=== PATIENT | male | born 1965 | race Caucasian/White ===

== ENCOUNTER 2017-09-22 09:30 | Emergency (ER) | payer OTHER ==
[2017-09-22 09:39] VITALS: BP 154/84; PULSE 90; TEMP 97.8; BMI 38.0
[2017-09-22] MEDS ORDERED: KETOROLAC TROMETHAMINE 60 MG/2 ML VIAL IM ONE (10:03)
[2017-09-22] MEDS ORDERED: KETOROLAC TROMETHAMINE 60 MG/2 ML VIAL ONE (10:05)
--- NOTE | 2017-09-22 11:00 | PDOC ---
History of Present Illness - General Chief Complaint: Back Pain Stated Complaint: BACK PAIN Time Seen by Provider: 09/22/17 09:50 History Source: Patient Exam Limitations: No Limitations - History of Present Illness Initial Comments: 09/22/17 10:46 CHIEF COMPLAINT: [Lower back pain] HISTORY OF PRESENT ILLNESS: 52-year-old female, history of back herniation after an accident presents with a generalized lower back pain, pain started after turning to pick something up, denies any other trauma, did not pick the object up pain started only when she was turning. Nonradiating pain, no neurosensory deficits, no bowel or bladder difficulty incontinence or urinary retention, no saddle anesthesia, no footdrop. No history of IVDU or history of cancer. ] REVIEW OF SYSTEMS: GENERAL: Afebrile, denies any weakness RESPIRATORY: No cough, wheezing, or hemoptysis. CARDIAC: No chest pain or shortness of breath MUSCULOSKELETAL: Pain to generalized lower back. No point tenderness. Pain worse on [right than left. ] SKIN : No erythema, no bruising, no deformity. GI/: Denies any abdominal pain, no urinary difficulty, incontinence or urinary retention. RECTAL: Denies any difficulty this A.m. NEUROLOGICAL: Denies any numbness or tingling. No neurosensory deficits. PHYSICAL EXAM: GENERAL: The patient is awake, alert, and fully oriented, in no acute distress. RESPIRATORY: Lungs clear bilaterally, no rhonchi wheezes or crackles CARDIAC: S1-S2 audible, no murmur rub or gallop MUSCULOSKELETAL: Pain to generalized lower back, nonradiating, no tingling or sensory deficit. Less than 2 second cap refill, +4 popliteal and pedal pulses. GI/: Abdomen soft, nontender, nondistended. No rebound tenderness. No masses palpable. MUSCULOSKELETAL: No spinal point tenderness. Normal reflexive and no deficits to sensation or strength. RECTAL: [Deferred patient with no neurological findings] SKIN: Warm, Dry, normal turgor, no erythema, no edema no bruising. Past History - Past Medical History Allergies/Adverse Reactions: Allergies Allergy/AdvReac Type Severity Reaction Status Date / Time No Known Allergies Allergy Verified 09/22/17 09:35 Home Medications: Ambulatory Orders Diazepam [Valium] 2 mg PO TID #15 tablet MDD 3 09/22/17 Naproxen [Naprosyn] 500 mg PO BID #20 tablet 09/22/17 COPD: No Other medical history: DENIES. - Suicide/Smoking/Psychosocial Hx Smoking History: Current every day smoker Have you smoked in the past 12 months: Yes Number of Cigarettes Smoked Daily: 10 Information on smoking cessation initiated: No *Physical Exam - Vital Signs Last Vital Signs Temp Pulse Resp BP Pulse Ox 97.8 F 90 15 154/84 100 09/22/17 09:35 09/22/17 09:35 09/22/17 09:35 09/22/17 09:35 09/22/17 09:35 ED Treatment Course - Medications Given in the ED: ED Medications Discontinued Medications Generic Name Dose Route Start Last Admin Trade Name Freq PRN Reason Stop Dose Admin Ketorolac Tromethamine 60 mg 09/22/17 10:03 09/22/17 10:13 Toradol Injection - IM 09/22/17 10:04 60 mg ONCE ONE Administration Medical Decision Making - Medical Decision Making 09/22/17 10:47 A/P: Patient with generalized lower back pain, history of herniated disc. Denies any neurosensory deficits, no radiating pain. Toradol 60 mg IM x 1 given with good result. Will DC on Naprosyn, and valium. follow up with PMD. No heavy lifting, No heavy lifting. I discussed the physical exam findings, ancillary test results and final diagnoses with the patient. I answered all of the patient's questions. The patient was satisfied with the care received and felt comfortable with the discharge plan and treatment plan. The patient will call to arrange follow-up and will return to the Emergency Department with any new, persistent or worsening symptoms. *DC/Admit/Observation/Transfer Diagnosis at time of Disposition: Low back pain Qualifiers: Chronicity: acute Back pain laterality: bilateral Sciatica presence: without sciatica Qualified Code(s): M54.5 - Low back pain - Discharge Dispostion Disposition: HOME Condition at time of disposition: Stable Admit: No - Prescriptions Prescriptions: Diazepam [Valium] 2 mg PO TID #15 tablet MDD 3 Naproxen [Naprosyn] 500 mg PO BID #20 tablet - Referrals Referrals: Tyler Castaneda MD [Primary Care Provider] - Brain Howell MD [Staff Physician] - - Patient Instructions Printed Discharge Instructions: DI for Low Back Pain Additional Instructions: 1. Please return to the emergency department with any numbness, tingling, weakness, numbness or tingling to groin or legs, or loss of bowel or bladder function. 2. Use pain medication as ordered. 3. Please is to followup in the office of Dr. howell for evaluation within a week if no improvement. 4. Ice or heat 5. Refrain from lifting anything above 10 pounds, until pain resolved. - Post Discharge Activity Forms/Work/School Notes: Back to Work
== END 2017-09-22 11:17 | disposition home or self-care (01) ==
LOC: JERFT 09:30
PROC: 3E0233Z Introduction of Anti-inflammatory into Muscle, Percutaneous Approach (ICD-10-PCS; principal; 2017-09-22)
DX: M54.5 Low back pain (principal); X50.1XXA Overexertion from prolonged static or awkward postures, initial encounter; Y93.89 Activity, other specified; Y92.89 Other specified places as the place of occurrence of the external cause; Y99.8 Other external cause status
CPT/HCPCS: 99281-25

== ENCOUNTER 2018-09-09 17:42 | Emergency (ER) | payer OTHER ==
[2018-09-09 17:59] VITALS: BP 154/107; PULSE 94; TEMP 99.5; BMI 39.5
--- NOTE | 2018-09-09 18:51 | PDOC ---
History of Present Illness - General Chief Complaint: Cold Symptoms Stated Complaint: COLD SYMPTOMS Time Seen by Provider: 09/09/18 17:57 History Source: Patient Exam Limitations: Clinical Condition - History of Present Illness Initial Comments: 09/09/18 18:47 Patient with no significant past medical history present with one day history of nasal congestion, body aches, cough, tactile fever and chills. Patient denies vomiting, abdominal pain or sore throat. Patient reported taking Tylenol for fever. Denies any other symptoms. Patient did not take flu shot this year. Timing/Duration: 24 hours Past History - Past Medical History Allergies/Adverse Reactions: Allergies Allergy/AdvReac Type Severity Reaction Status Date / Time No Known Allergies Allergy Verified 09/09/18 17:59 Home Medications: Ambulatory Orders Benzonatate [Tessalon Pearls -] 100 mg PO Q8H PRN #21 capsule 09/09/18 Methylprednisolone [Medrol Dose Jose] 4 mg PO ASDIR #21 tablet 09/09/18 Oseltamivir Phosphate [Tamiflu] 75 mg PO BID 5 Days #10 capsule 09/09/18 COPD: No - Suicide/Smoking/Psychosocial Hx Smoking History: Never smoked Have you smoked in the past 12 months: Yes Number of Cigarettes Smoked Daily: 10 Review of Systems - Review of Systems Able to Perform ROS?: Yes Is the patient limited Estonian proficient: No Constitutional: Yes: Chills, Fever (tactile), Malaise HEENTM: Yes: Symptoms Reported, See HPI, Nose Congestion. No: Eye Pain, Blurred Vision, Tearing, Recent change in vision, Double Vision, Cataracts, Ear Pain, Ocular Prothesis, Ear Discharge, Nose Pain, Tinnitus, Nose Bleeding, Hearing Loss, Throat Pain, Throat Swelling, Mouth Pain, Dental Problems, Difficulty Swallowing, Mouth Swelling, Other Respiratory: Yes: Symptoms reported, See HPI, Cough. No: Orthopnea, Shortness of Breath, SOB with Exertion, SOB at Rest, Stridor, Wheezing, Productive cough, Hemoptysis, Other Cardiac (ROS): No: Symptoms Reported, See HPI, Chest Pain, Edema, Irregular Heart Rate, Lightheadedness, Palpitations, Syncope, Chest Tightness, Other ABD/GI: Yes: Nausea. No: Symptoms Reported, See HPI, Abdominal Distended, Abd. Pain w/ defecation, Blood Streaked Bowels, Constipated, Diarrhea, Difficulty Swallowing, Poor Appetite, Poor Fluid Intake, Rectal Bleeding, Vomiting, Indigestion, Abdominal cramping, Tarry Stools, Other : No: Discharge, Frequency, Urgency Neurological: No: Headache, Dizziness All Other Systems: Reviewed and Negative *Physical Exam - Vital Signs Last Vital Signs Temp Pulse Resp BP Pulse Ox 99.5 F 94 H 18 154/107 H 98 09/09/18 17:57 09/09/18 17:57 09/09/18 17:57 09/09/18 17:57 09/09/18 17:57 - Physical Exam Comments: 09/09/18 18:49 GENERAL: Well developed, well nourished. Awake and alert. No acute distress. HEENT: Normocephalic, atraumatic. PERRLA, EOMI. No conjunctival pallor. Sclera are non-icteric. Moist mucous membranes. Oropharynx is clear. NECK: Supple. Full ROM. CARDIOVASCULAR: Regular rate and rhythm. No murmurs, rubs, or gallops. Distal pulses are 2+ and symmetric. PULMONARY: No evidence of respiratory distress. Lungs clear to auscultation bilaterally. No wheezing, rales or rhonchi. ABDOMINAL: Soft. Non-tender. Non-distended. No rebound or guarding. No organomegaly. Normoactive bowel sounds. MUSCULOSKELETAL Normal range of motion at all joints. SKIN: Warm and dry. No cyanosis. Normal capillary refill. No rashes. No jaundice. NEUROLOGICAL: Alert, awake, appropriate. Gait is normal without ataxia. PSYCHIATRIC: Cooperative. Good eye contact. Appropriate mood General Appearance: Yes: Nourished, Appropriately Dressed. No: Apparent Distress Moderate Sedation - Procedure Monitoring Vital Signs: Procedure Monitoring Vital Signs Temperature 99.5 F 09/09/18 17:57 Pulse Rate 94 H 09/09/18 17:57 Respiratory Rate 18 09/09/18 17:57 Blood Pressure 154/107 H 09/09/18 17:57 O2 Sat by Pulse Oximetry (%) 98 09/09/18 17:57 Medical Decision Making - Medical Decision Making 09/09/18 18:49 Patient with no significant past medical history present with complaint of 24- hour history of URI symptoms with tactile fever, chills and body aches. Clinical exam unremarkable lungs clear to auscultation bilateral and normal cardio exam. Patient with elevated blood pressures with no history of hypertension. Elevated blood pressure likely caused by sickness. Symptoms likely viral syndrome versus viral URI versus influenza. Rapid flu tests ordered to rule out influenza. 09/09/18 19:28 Rapid flu positive for Influenza A. Patient stable for outpatient treatment for influenza and viral URI *DC/Admit/Observation/Transfer Diagnosis at time of Disposition: Viral syndrome, Influenza A URI (upper respiratory infection) Qualifiers: URI type: unspecified viral URI Qualified Code(s): J06.9 - Acute upper respiratory infection, unspecified - Discharge Dispostion Disposition: HOME Condition at time of disposition: Stable Decision to Admit order: No - Prescriptions Prescriptions: Benzonatate [Tessalon Pearls -] 100 mg PO Q8H PRN #21 capsule PRN Reason: Cough Methylprednisolone [Medrol Dose Jose] 4 mg PO ASDIR #21 tablet Oseltamivir Phosphate [Tamiflu] 75 mg PO BID 5 Days #10 capsule - Referrals Referrals: Tyler Castaneda MD [Primary Care Provider] - - Patient Instructions Printed Discharge Instructions: DI for Viral Upper Respiratory Infection -- Adult Additional Instructions: Your flu test was positive for Influenza A. Take medications as prescribed . Increase fluid intake. Take Tylenol as needed for fever. Follow-up with PCP - Post Discharge Activity
== END 2018-09-09 19:40 | disposition home or self-care (01) ==
LOC: JERFT 17:42 → EDSEX 17:42 → JERFT 19:40
DX: J06.9 Acute upper respiratory infection, unspecified (principal); J09.X2 Influenza due to identified novel influenza A virus with other respiratory manifestations; B97.89 Other viral agents as the cause of diseases classified elsewhere
CPT/HCPCS: 87804; 99281-25

== ENCOUNTER 2019-08-08 16:57 | Emergency (ER) | payer OTHER ==
[2019-08-08 17:14] VITALS: BP 173/75; PULSE 85; TEMP 98.1; BMI 34.9
--- NOTE | 2019-08-08 17:36 | PDOC ---
History of Present Illness - General Chief Complaint: Respiratory Stated Complaint: FLU SYX Time Seen by Provider: 08/08/19 17:14 History Source: Patient Exam Limitations: No Limitations - History of Present Illness Initial Comments: 08/08/19 17:34 HISTORY OF PRESENT ILLNESS: 54-year-old woman who denies medical history presents emergency department for evaluation of cough, sore throat, body aches and subjective fevers for the past 7 days. Patient noted fevers started approximately 3 days ago but has not checked her temperature. 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 Patient is a pack-a-day smoker. No recent travel or sick contacts. PAST MEDICAL HISTORY: Denies past medical history SURGICAL HISTORY: Denies ALLERGIES: No known drug allergies REVIEW OF SYSTEMS General/Constitutional: See HPI HEENT: Denies change in vision. Denies ear pain or discharge. Denies sore throat. Cardiovascular: Denies chest pain or shortness of breath. Respiratory: See HPI Gastrointestinal: Denies nausea, vomiting, diarrhea or constipation. Denies rectal bleeding. Genitourinary: Denies dysuria, frequency, or change in urination. Musculoskeletal: Denies joint or muscle swelling or pain. Denies neck or back pain. Skin and breasts: Denies rash or easy bruising. Neurologic: Denies headache, vertigo, loss of consciousness, or loss of sensation. Psychiatric: Denies depression or anxiety. Endocrine: Denies increased thirst. Denies abnormal weight change. Hematologic/Lymphatic: Denies anemia, easy bleeding, or history of blood clots. Allergic/Immunologic: Denies hives or skin allergy. Denies latex allergy. PHYSICAL EXAM General Appearance: Well-appearing, appropriately dressed. No apparent distress , no intoxication. HEENT: EOMI, PERRLA, normal ENT inspection, normal voice, TMs normal, pharynx normal. No conjunctival pallor. No photophobia, scleral icterus. Neck: Supple. Trachea midline. No tenderness, rigidity, carotid bruit, stridor , lymphadenopathy, or thyromegaly. Respiratory/Chest: Lungs CTAB. No shortness of breath, chest tenderness, respiratory distress, accessory muscle use. Right basilar wheezes present. No crackles or adventitious breath sounds present. Cardiovascular: RRR. S1, S2. No JVD, murmur, bradycardia, tachycardia. Vascular Pulses: Dorsalis-Pedis (R): 2+, Dorsalis-Pedis (L): 2+ Neurologic: line operator II-XII intact. Fully oriented, alert. Appropriate mood/affect. Motor strength 5/5. No appreciable EOM palsy, facial droop or sensory deficit. Past History - Past Medical History Allergies/Adverse Reactions: Allergies Allergy/AdvReac Type Severity Reaction Status Date / Time No Known Allergies Allergy Verified 08/08/19 17:09 Home Medications: Ambulatory Orders Azithromycin [Zithromax 250mg Tablets -] 250 mg PO UTDICT #6 tab 08/08/19 COPD: No - Psycho Social/Smoking Cessation Hx Smoking History: Current some day smoker Have you smoked in the past 12 months: Yes Number of Cigarettes Smoked Daily: 10 Information on smoking cessation initiated: No *Physical Exam - Vital Signs Last Vital Signs Temp Pulse Resp BP Pulse Ox 98.1 F 85 16 173/75 H 95 08/08/19 17:11 08/08/19 17:11 08/08/19 17:11 08/08/19 17:11 08/08/19 17:11 Medical Decision Making - Medical Decision Making 08/08/19 17:36 A/P: 54-year-old woman with cough for 1 week Most likely bronchitis as patient is a smoker and has a moist cough. Patient has had a symptoms for approximately 1 week and I will defer influenza testing as patient is outside the window for treatment. Viviana's Reassess 08/08/19 18:11 Repeat lung exam reveals clear lungs. We will discharge patient home with prescription for Z-Jose and instruct patient to follow-up with her primary doctor for reevaluation. I discussed the physical exam findings, ancillary test results and final diagnoses with the patient. I answered all of the patient's questions. The patient was satisfied with the care received and felt comfortable with the discharge plan and treatment plan. The patient will call their primary care physician within 24 hours to arrange follow-up and will return to the Emergency Department with any new, persistent or worsening symptoms. Discharge - Discharge Information Problems reviewed: Yes Clinical Impression/Diagnosis: Bronchitis Condition: Stable Disposition: HOME - Admission No - Additional Discharge Information Prescriptions: Azithromycin [Zithromax 250mg Tablets -] 250 mg PO UTDICT #6 tab - Follow up/Referral - Patient Discharge Instructions Additional Instructions: Take azithromycin as prescribed. Stop smoking. Your emergency department visit is incomplete until you follow-up with your primary doctor. Return to the emergency department for any new or worsening symptoms. Thank you very much for choosing us to provide your emergent healthcare needs. - Post Discharge Activity
[2019-08-08] MEDS ORDERED: ALBUTEROL SO4 2.5/IPRATROPIUM 0.5 INH SOL 3 ML VIAL.NEB. NEB SCH (17:45)
== END 2019-08-08 18:18 | disposition home or self-care (01) ==
LOC: JERFT 16:57
PROC: 3E0F7GC Introduction of Other Therapeutic Substance into Respiratory Tract, Via Natural or Artificial Opening (ICD-10-PCS; principal; 2019-08-08)
DX: J40 Bronchitis, not specified as acute or chronic (principal); F17.210 Nicotine dependence, cigarettes, uncomplicated
CPT/HCPCS: 99281-25

== ENCOUNTER 2024-03-01 08:49 | Inpatient (IN) | payer OTHER ==
[2024-03-01] MEDS ORDERED: ADENOSINE 6 MG/2 ML VIAL IVPUSH ONE (08:58)
[2024-03-01] MEDS: SODIUM CHLORIDE 0.9% 1000 ML INFUS.BAG IV ONE (09:19)
[2024-03-01 09:24] LABS: BASO % 0.6 % (0-2.0); EOS % 0.7 % (0-4.5); HEMATOCRIT 45.7 % (32.4-45.2); HEMOGLOBIN 15.2 GM/dL (10.7-15.3); LYMPH % 22.2 % (8-40); MCH 28.2 pg (25.7-33.7); MCHC 33.3 g/dl (32.0-36.0); MEAN CELL VOLUME 84.6 fl (80-96); MEAN PLT VOLUME 9.1 fl (7.5-11.1); NEUT % 71.5 % (42.8-82.8); PLATELET COUNT 188 10^3/uL (134-434); RDW 14.4 % (11.6-15.6); WHITE BLOOD COUNT 8.8 K/mm3 (4.0-10.0)
[2024-03-01 09:39] LABS: ACTIVATED PTT 32.6 SECONDS (25.2-36.5); INR 1.04 (0.83-1.09); PROTHROMBIN TIME (PATIENT) 11.9 SEC (9.7-13.0)
[2024-03-01 09:47] LABS: POTASSIUM 5.4 mmol/L (3.5-5.1)
[2024-03-01 09:50] LABS: ALBUMIN 3.6 g/dl (3.4-5.0); BLOOD UREA NITROGEN 20.6 mg/dL (7-18); CALCIUM 8.9 mg/dL (8.5-10.1); MAGNESIUM 2.2 mg/dL (1.8-2.4)
[2024-03-01 09:55] LABS: BILIRUBIN,TOTAL 0.6 mg/dL (0.2-1)
[2024-03-01 11:32] LABS: POTASSIUM 3.7 mmol/L (3.5-5.1)
[2024-03-01 11:33] LABS: CALCIUM 8.3 mg/dL (8.5-10.1)
[2024-03-01 11:34] LABS: BLOOD UREA NITROGEN 18.3 mg/dL (7-18)
[2024-03-01 11:37] LABS: CREATININE 0.8 mg/dL (0.55-1.3)
[2024-03-01] MEDS ORDERED: ASPIRIN 81 MG CHEWABLE TABLETS ONE (13:07)
[2024-03-01] MEDS: ASPIRIN 81 MG CHEWABLE TABLETS PO ONE (14:15)
[2024-03-02 01:11] VITALS: BMI 41.8
[2024-03-02 08:49] LABS: BASO % 0.5 % (0-2.0); EOS % 1.5 % (0-4.5); HEMATOCRIT 40.7 % (32.4-45.2); HEMOGLOBIN 13.7 GM/dL (10.7-15.3); LYMPH % 32.6 % (8-40); MCH 28.4 pg (25.7-33.7); MCHC 33.7 g/dl (32.0-36.0); MEAN CELL VOLUME 84.3 fl (80-96); MEAN PLT VOLUME 8.9 fl (7.5-11.1); MONO % 4.8 % (3.8-10.2); NEUT % 60.6 % (42.8-82.8); PLATELET COUNT 170 10^3/uL (134-434); RBC 4.83 M/mm3 (3.60-5.2); RDW 14.4 % (11.6-15.6); WHITE BLOOD COUNT 5.7 K/mm3 (4.0-10.0)
[2024-03-02 09:19] LABS: POTASSIUM 4.2 mmol/L (3.5-5.1)
[2024-03-02 09:21] LABS: BLOOD UREA NITROGEN 17.8 mg/dL (7-18); CALCIUM 8.7 mg/dL (8.5-10.1); MAGNESIUM 2.3 mg/dL (1.8-2.4)
[2024-03-02 09:25] LABS: CREATININE 0.7 mg/dL (0.55-1.3); PHOSPHOROUS 3.6 mg/dL (2.5-4.9)
[2024-03-02] MEDS: metoPROLOL SUCCINATE 25 MG TAB.SR.24H (FP) PO SCH ×2 (11:19→21:29)
[2024-03-02] MEDS: VALSARTAN 160 MG TABLET PO SCH (18:46)
[2024-03-02] MEDS ORDERED: metoPROLOL SUCCINATE 25 MG TAB.SR.24H (FP) PO SCH (19:00)
[2024-03-03] MEDS: LABETALOL HCL 200 MG TABLET (FP) PO SCH (08:24)
[2024-03-03] MEDS ORDERED: REGADENOSON 0.4 MG/5 ML PRE-FILLED SYRINGE IVPUSH ONE (08:33)
[2024-03-03 08:39] LABS: HEMATOCRIT 42.8 % (32.4-45.2); HEMOGLOBIN 14.6 GM/dL (10.7-15.3); MCH 28.8 pg (25.7-33.7); MEAN CELL VOLUME 84.5 fl (80-96); MEAN PLT VOLUME 9.1 fl (7.5-11.1); PLATELET COUNT 187 10^3/uL (134-434); RBC 5.06 M/mm3 (3.60-5.2); RDW 14.7 % (11.6-15.6); WHITE BLOOD COUNT 7.1 K/mm3 (4.0-10.0)
[2024-03-03 08:41] LABS: POTASSIUM 4.2 mmol/L (3.5-5.1)
[2024-03-03 08:45] LABS: CALCIUM 8.8 mg/dL (8.5-10.1)
[2024-03-03 08:47] LABS: BLOOD UREA NITROGEN 17.8 mg/dL (7-18); MAGNESIUM 2.1 mg/dL (1.8-2.4)
[2024-03-03 08:49] LABS: PHOSPHOROUS 3.7 mg/dL (2.5-4.9)
[2024-03-03 08:51] LABS: CREATININE 0.8 mg/dL (0.55-1.3)
[2024-03-03] MEDS: REGADENOSON 0.4 MG/5 ML PRE-FILLED SYRINGE IVPUSH ONE (08:55)
[2024-03-03] MEDS: ASPIRIN COATED 81 MG TABLET.EC PO SCH (11:41)
[2024-03-03] MEDS: LABETALOL HCL 100 MG TABLET (FP) PO ONE (11:41)
[2024-03-03 11:53] VITALS: RESP 17; TEMP 97.9
[2024-03-03 13:51] VITALS: BP 149/67; PULSE 68
== END 2024-03-03 15:34 | disposition home or self-care (01) | DRG 201 ==
LOC: JER 08:49 → JERBED 12:57 → OBSVTOIN 17:27 → J4W 22:05
PROVIDERS: ADMIT Internal Medicine; ATTEND Internal Medicine
DX: I47.10 Supraventricular tachycardia, unspecified (principal); I10 Essential (primary) hypertension; R79.89 Other specified abnormal findings of blood chemistry
CPT/HCPCS: 36415; 71045-TC-FY; 78452-TC; 80048; 80053; 83735; 84100; 84443; 84484; 85025; 85027; 85379; 85610; 85730; 93005; 93010; 93017; 93306-TC; 99285-25; A9502; G0378; J2785

== ENCOUNTER 2024-10-26 07:30 | Emergency (ER) | payer OTHER ==
[2024-10-26 07:42] VITALS: TEMP 97.9; BMI 38.0
[2024-10-26] MEDS ORDERED: ONDANSETRON 4 MG/2 ML VIAL ONE (08:26)
[2024-10-26] MEDS: SODIUM CHLORIDE 1,000 ML IV STA (08:40)
[2024-10-26] MEDS: ONDANSETRON 4 MG/2 ML VIAL IVPUSH ONE (08:40)
[2024-10-26 09:00] LABS: ABSOLUTE IMMATURE GRANULOCYTES 0.03 x10^3/uL (0.0-0.031); BASOPHILS # 0.03 x10^3/uL (0.01-0.08); EOSINOPHIL % 1.3 % (0.7-5.8); EOSINOPHILS # 0.11 x10^3/uL (0.04-0.36); HEMATOCRIT 46.2 % (34.1-44.9); HEMOGLOBIN 14.9 g/dL (11.2-15.7); MCHC 32.3 g/dl (32.2-35.5); MEAN CELL VOLUME 88.3 fl (79.4-94.8); MEAN PLT VOLUME 11.6 fl (9.4-12.3); MONOCYTE % 4.6 % (4.7-12.5); PLATELET COUNT 186 x10^3/uL (182-369); RDW 13.2 % (12.3-16.6)
[2024-10-26 09:01] VITALS: RESP 16
[2024-10-26 09:31] LABS: ALBUMIN 3.6 g/dl (3.4-5.0); BLOOD UREA NITROGEN 20.9 mg/dL (7-18); CALCIUM 9.4 mg/dL (8.5-10.1)
[2024-10-26 09:35] LABS: BILIRUBIN,TOTAL 0.4 mg/dL (0.2-1); TOT PROT 6.8 g/dl (6.4-8.2)
[2024-10-26 10:20] VITALS: BP 156/74; PULSE 83
[2024-10-26 12:26] LABS: HIV INTERPRETATION NEGATIVE (NEGATIVE)
[2024-10-26 12:27] LABS: HCV DIAGNOSTIC IN-HOUSE W/RFLX NON-REACTIVE (NONREACTIVE)
== END 2024-10-26 10:32 | disposition home or self-care (01) ==
LOC: JER 07:30
PROC: 3E033GC Introduction of Other Therapeutic Substance into Peripheral Vein, Percutaneous Approach (ICD-10-PCS; principal; 2024-10-26)
PROC: 3E0337Z Introduction of Electrolytic and Water Balance Substance into Peripheral Vein, Percutaneous Approach (ICD-10-PCS; 2024-10-26)
DX: I47.10 Supraventricular tachycardia, unspecified (principal); R42 Dizziness and giddiness; R00.2 Palpitations; R05.9 Cough, unspecified; F41.9 Anxiety disorder, unspecified
CPT/HCPCS: 36415; 80053; 84484; 85025; 86803; 87389; 93005; 93010; 99284-25